=== PATIENT | male | born 1960 | race Caucasian/White ===

== ENCOUNTER 2019-05-15 10:44 | Emergency (ER) | payer BC ==
[~2019-05-15] VITALS: Ht 180.3 cm; Wt 113.5 kg
[2019-05-15 10:55] VITALS: Ht 180.3 cm; Wt 113.5 kg
[2019-05-15 13:24] VITALS: BP 145/89
== END 2019-05-15 13:24 | disposition home or self-care (01) ==
LOC: ED 10:44
DX: I82.4Z1 Acute embolism and thrombosis of unspecified deep veins of right distal lower extremity (principal)
CPT/HCPCS: J1650